=== PATIENT | male | born 2000 | race African-American/Black ===

== ENCOUNTER 2019-09-10 17:36 | Emergency (ER) | payer SELFPAY ==
[2019-09-10 17:43] VITALS: BP 119/66; PULSE 102; RESP 13; TEMP 37; O2SAT 98; BMI 16.7
[2019-09-10 18:08] LABS: Add Manual Diff / Slide Review NO; Basophils Absolute Auto 0 /uL (0-100); Basophils Percent Auto 1.3 % (0-2); Eosinophils Absolute Auto 0 /uL (0-450); Eosinophils Percent Auto 0.7 % (2-4); Hematocrit 41.7 % (41-53); Hemoglobin 13.9 g/dL (13.5-17.5); Lymphocytes Absolute Auto 1400 /uL (1100-4500); Lymphocytes Percent Auto 40.6 % (25-40); Mean Corpuscular HGB Conc 33.4 % (30-36); Mean Corpuscular Hemoglobin 27.4 PG (26-34); Mean Corpuscular Volume 81.9 fL (80-100); Monocytes Absolute Auto 400 /uL (0-900); Monocytes Percent Auto 10.5 % (3-14); Neutrophils Absolute Auto 1700 /uL (1500-7000); Neutrophils Percent Auto 46.9 % (50-75); Platelet Count 194 X10^3/uL (150-400); Red Blood Cell Count 5.09 X10^6/uL (4.5-5.9); Red Cell Distribution Width 14.4 % (11.6-14.8); White Blood Cell Count 3.6 X10^3/uL (4.5-11.0)
[2019-09-10 18:14] LABS: Alanine Aminotransferase 19 IU/L (<50); Albumin 4.8 g/dL (3.5-5.0); Albumin Globulin Ratio 1.4 (1.0-2.8); Alkaline Phosphatase 127 U/L (38-126); Aspartate Aminotransferase 34 IU/L (17-59); BUN Creatinine Ratio 12.9 (6-22); Bilirubin Total 0.6 mg/dL (0.2-1.3); Blood Urea Nitrogen 13 mg/dL (9-20); Calcium 9.9 mg/dL (8.4-10.2); Carbon Dioxide 26 mmol/L (22-32); Chloride 101 mmol/L (98-107); Estimated Glomerular Filt Rate > 60.0 mL/min (>60); Globulin 3.5 g/dL (1.7-4.1); Glucose 100 mg/dL (70-100); HEMOLYSIS < 15 (0-50); Lipase 60 U/L (23-300); Potassium 3.7 mmol/L (3.4-5.1); Sodium 138 mmol/L (137-145); Total Protein 8.3 g/dL (6.3-8.2)
[2019-09-10 18:19] LABS: INR 1.1 (0.9-1.3); Prothrombin Time 12.7 SECONDS (10.1-12.7)
[2019-09-10 18:21] LABS: PTT Partial Thromboplastin Tim 36 SECONDS (26.4-36.2)
--- NOTE | 2019-09-10 19:40 | PC.NURSE ---
Unable to locate pt in lobby
--- NOTE | 2019-09-10 20:00 | PC.NURSE ---
Unable to locate pt
--- NOTE | 2019-09-11 01:01 | ED_ITS ---
HPI - Abdominal Pain General Chief Complaint: Abdominal Pain Stated Complaint: Sharp abdominal pain on left side Source: patient Mode of arrival: Ambulatory Limitations: no limitations Related Data Allergies Allergy/AdvReac Type Severity Reaction Status Date / Time No Known Drug Allergies Allergy Verified 09/10/19 17:43 Patient History Social History Smoking Status: Current every day smoker Smoking Status: Current every day smoker alcohol intake frequency: holidays/special occasions only Substance Use Type: does not use Exam Initial Vital Signs Initial Vital Signs: Vital Signs Temperature 98.6 F 09/10/19 17:43 Pulse Rate 102 H 09/10/19 17:43 Respiratory Rate 13 09/10/19 17:43 Blood Pressure 119/66 09/10/19 17:43 Pulse Oximetry 98 09/10/19 17:43 Course Orders Ordered: ED Orders 09/10/19 17:46 EKG-12 Lead Stat 09/10/19 17:54 Complete Blood Count AUTO DIFF Stat Comprehensive Metabolic Panel Stat Lipase Stat Partial Thromboplastin Time Stat Prothrombin Time INR Stat Vital Signs Vital signs: Vital Signs - 8 hr 09/10/19 17:43 Temperature 98.6 F Pulse Rate 102 H Respiratory Rate 13 Blood Pressure 119/66 Pulse Oximetry 98 MDM - Abdominal Pain Lab Data Result diagrams: 09/10/19 17:54 09/10/19 17:54 Labs: Lab Results 09/10/19 09/10/19 09/10/19 Range/Units 17:54 17:54 17:54 WBC 3.6 L (4.5-11.0) X10^3/uL RBC 5.09 (4.5-5.9) X10^6/uL Hgb 13.9 (13.5-17.5) g/dL Hct 41.7 (41-53) % MCV 81.9 (80-100) fL MCH 27.4 (26-34) PG MCHC 33.4 (30-36) % RDW 14.4 (11.6-14.8) % Plt Count 194 (150-400) X10^3/uL Neut % (Auto) 46.9 L (50-75) % Lymph % (Auto) 40.6 H (25-40) % [place] % (Auto) 10.5 (3-14) % Eos % (Auto) 0.7 L (2-4) % Baso % (Auto) 1.3 (0-2) % Neut # (Auto) 1700 (2421-2821) /uL Lymph # (Auto) 1400 (0158-8761) /uL [place] # (Auto) 400 (0-900) /uL Eos # (Auto) 0 (0-450) /uL Baso # (Auto) 0 (0-100) /uL PT 12.7 (10.1-12.7) SECONDS INR 1.1 (0.9-1.3) APTT 36 (26.4-36.2) SECONDS Sodium 138 (137-145) mmol/L Potassium 3.7 (3.4-5.1) mmol/L Chloride 101 (98-107) mmol/L Carbon Dioxide 26 (22-32) mmol/L BUN 13 (9-20) mg/dL Creatinine 1.01 (0.66-1.25) mg/dL Estimated GFR > 60.0 (>60) mL/min BUN/Creatinine Ratio 12.9 (6-22) Glucose 100 (70-100) mg/dL Calcium 9.9 (8.4-10.2) mg/dL Total Bilirubin 0.6 (0.2-1.3) mg/dL AST 34 (17-59) IU/L ALT 19 (<50) IU/L Alkaline Phosphatase 127 H (38-126) U/L Total Protein 8.3 H (6.3-8.2) g/dL Albumin 4.8 (3.5-5.0) g/dL Globulin 3.5 (1.7-4.1) g/dL Albumin/Globulin Ratio 1.4 (1.0-2.8) Lipase 60 (23-300) U/L Discharge Plan Departure Patient Disposition: Left Against Medical Advice Clinical Impression: Patient left without being seen Discharge Date/Time: 09/10/19 20:14 Stand Alone Forms: Against Medical Advice
== END 2019-09-10 20:14 | disposition left against medical advice (07) ==
PROVIDERS: Emergency Medicine; Emergency Provider Emergency Medicine
DX: R10.9 Unspecified abdominal pain (principal)
CPT/HCPCS: 36415; 80053; 83690; 85025; 85610; 85730; 99281

== ENCOUNTER 2020-02-01 12:00 | Emergency (ER) | payer OTHER, SELFPAY ==
[2020-02-01 12:29] VITALS: BP 112/60; PULSE 63; RESP 16; TEMP 36.6; O2SAT 100; BMI 17.2
[2020-02-01 13:28] LABS: COVID19 -Nasal RAPID Negative (Negative)
--- NOTE | 2020-02-01 14:05 | ED_ITS ---
HPI - URI/Sore Throat <REGIS BillPSunshine - Last Filed: 02/01/20 14:13> General Chief Complaint: Upper Respiratory Symptoms Stated Complaint: Cough,Headache,Congestion,Fever Time Seen by Provider: 02/01/20 12:32 Source: patient Mode of arrival: Ambulatory Limitations: no limitations History of Present Illness HPI Narrative: The patient is a 19-year-old male current everyday smoker who d enies pertinent medical history presents with a chief complaint of cough headache congestion and fever this morning. He states that his temperature was up to 100.6?. He had a coughing fit with slight shortness of breath that is completely resolved now. He had some nasal congestion this morning. He states that is improved. He denies any current fevers muscle aches or chills. He denies any nausea vomiting diarrhea chest pain shortness of breath or cough at this point time. He presents with his significant other, requesting coronavirus testing as they have a premature in the intensive care unit at [place]. The she is concerned about exposing there NICU baby to schneider virus and would like him to be tested. Patient is also requesting testing. Related Data Home Medications Medication Instructions Recorded Confirmed No Known Home Medications 02/01/20 02/01/20 Allergies Allergy/AdvReac Type Severity Reaction Status Date / Time No Known Drug Allergies Allergy Verified 09/10/19 17:43 [facility] Last Filed: 02/01/20 14:13> Review of Systems Narrative: GENERAL: D see HPI HEENT: Denies sinus pain, ear pain, sore throat, difficulty swallowing, dizziness. RESPIRATORY: See HPI CARDIOVASCULAR: Denies chest pain, palpitations, orthopnea, edema, GASTROINTESTINAL: Denies nausea, vomiting, abdominal pain, diarrhea, constipation, melena. : Denies dysuria, frequency, incontinence, hematuria, urinary retention. MUSCULOSKELETAL: denies weakness, joint pain, or bony pain SKIN: Denies rash, skin lesions, or other NEUROLOGIC: Denies weakness, headache, numbness, change in speech, confusion, seizures, incoordination. PSYCHIATRIC: No concerning psychosocial issues. 12 point review of systems is negative except for those stated above Patient History [facility] - Last Filed: 02/01/20 14:13> Social History Smoking Status: Current every day smoker Smoking Status: Current every day smoker alcohol intake frequency: holidays/special occasions only Substance Use Type: marijuana Exam <MARIBEL Bill - Last Filed: 02/01/20 14:13> Narrative Exam Narrative: GENERAL: This is a well-nourished, well-developed patient, in no acute distress HEAD: Atraumatic. Normocephalic. No temporal or scalp tenderness. EYES: Pupils equal round and reactive. Extraocular motions intact. No scleral icterus. No injection or drainage. ENT: Nose without bleeding, purulent drainage or septal hematoma. Wearing a mask. Airway patent. NECK: Trachea midline. No JVD or lymphadenopathy. Supple, nontender, no meningeal signs. CARDIOVASCULAR: Regular rate and rhythm RESPIRATORY: Clear to auscultation. Breath sounds equal bilaterally. No wheezes, rales, or rhonchi. No cough. No increased respiratory effort. No accessory muscle use. Speaking full sentences. GASTROINTESTINAL: Abdomen soft, non-tender, nondistended. No hepato- splenomegaly, or palpable masses. No guarding. EXTREMITIES: No clubbing, cyanosis, or edema. No joint tenderness, effusion, or edema noted. BACK: Nontender without deformity or crepitance. No flank tenderness. NEURO: AOx3. SKIN: No rash or erythema on visible skin. Initial Vital Signs Initial Vital Signs: Vital Signs Temperature 97.9 F 02/01/20 12:29 Pulse Rate 63 02/01/20 12:29 Respiratory Rate 16 02/01/20 12:29 Blood Pressure 112/60 02/01/20 12:29 Pulse Oximetry 100 02/01/20 12:29 <Lucas Lloyd DO - Last Filed: 02/01/20 14:26> Initial Vital Signs Initial Vital Signs: Vital Signs Temperature 97.9 F 02/01/20 12:29 Pulse Rate 63 02/01/20 12:29 Respiratory Rate 16 02/01/20 12:29 Blood Pressure 112/60 02/01/20 12:29 Pulse Oximetry 100 02/01/20 12:29 Scores <MARIBEL Bill - Last Filed: 02/01/20 14:13> GCS Shruti coma scale eye opening: Spontaneous [place] coma scale verbal response: Orientated [place] coma scale motor response: Obey commands [place] coma scale total score: 15 Course <SANDER Bill-[facility] - Last Filed: 02/01/20 14:13> Orders Ordered: ED Orders 02/01/20 13:09 COVID19 -ED/INPAT/OR/L&D Stat Vital Signs Vital signs: Vital Signs - 8 hr 02/01/20 12:29 Temperature 97.9 F Pulse Rate 63 Respiratory Rate 16 Blood Pressure 112/60 Pulse Oximetry 100 <Lucas Lloyd DO - Last Filed: 02/01/20 14:26> Orders Ordered: ED Orders 02/01/20 13:09 COVID19 -ED/INPAT/OR/L&D Stat Vital Signs Vital signs: Vital Signs - 8 hr 02/01/20 12:29 Temperature 97.9 F Pulse Rate 63 Respiratory Rate 16 Blood Pressure 112/60 Pulse Oximetry 100 MDM - URI/Sore Throat <SANDER Bill- - Last Filed: 02/01/20 14:13> Lab Data Labs: Lab Results 02/01/20 Range/Units 13:09 COVID-19 PCR Negative (Negative) MDM Narrative Medical decision making narrative: The patient is a 19-year-old male who presents with a chief complaint of cough, shortness of breath, fever this morning but much improved at this point right now. The patient and his significant other are requesting coronavirus testing as at they have an infant in the NICU. The patient appears well and nontoxic, coronavirus is negative. I encouraged follow-up with primary care provider and coming back to the emergency department for any acute concerns. Patient has no questions or concerns upon discharge and states understanding return precautions as well as follow-up care. <Lucas Lloyd DO - Last Filed: 02/01/20 14:26> Lab Data Labs: Lab Results 02/01/20 Range/Units 13:09 COVID-19 PCR Negative (Negative) Discharge Plan Departure Patient Disposition: Home Clinical Impression: Cough Instructions: DI for Cough -- Adult Activity Restrictions/Additional Instructions: Thank you for trusting us with your care today. As discussed, your coronavirus test was negative. Please keep using masks, washing your hands, etcetera otherwise your exam is well today. I have given you contact information the [facility] health human resources analyst. They can help you arrange a primary care provider for follow-up. Please come back to the emergency department for any acute concerns in the meantime. Prescriptions: No Action No Known Home Medications RF: 0 Referrals: [facility] Resources [Outside] <Lucas Lloyd, DO - Last Filed: 02/01/20 14:26> Cosign ED Attending Cosbertinature Attestation: Dr Lloyd Co-Sign Statement: I was available for consultation during this patient's emergency department visit. This chart is signed by myself for administrative purposes only. I did not have direct contact with this patient during this visit. They were seen independently by the APC.
== END 2020-02-01 14:35 | disposition home or self-care (01) ==
PROVIDERS: Emergency Provider Nurse Practitioner Family
DX: R05 Cough (principal); R51.9 Headache, unspecified; R06.02 Shortness of breath; R50.9 Fever, unspecified; Z20.818 Contact with and (suspected) exposure to other bacterial communicable diseases
CPT/HCPCS: 87635; 99281; 99282